=== PATIENT | male | born 1960 | race Caucasian/White ===

== ENCOUNTER → 2018-07-15 | Day surgery (SDC) | payer OTHER ==
[2018-07-11 18:00] LABS: ANION GAP 15.9 mmol/L (8-16); CALCIUM 9.7 mg/dL (8.4-10.2); CREATININE, SERUM 1.36 mg/dL (0.72-1.25); POTASSIUM 3.9 mmol/L (3.5-5.1)
[~2018-07-15] MED LIST: CLINDAMYCIN 300MG 50 ML IV ONE; FENTANYL CITRATE/PF 100MCG/2 ML INJ ONE; GENTAMICIN 120MG/NS 100ML 100 ML ONE; HYDROCHLOROTHIA25 MG PO; LIDOCAINE HCL 2% LOCAL INJ 5 ML SDV VIAL INJ ONE; LISINOPRIL10 MG PO; MIDAZOLAM HCL 2 MG/2 ML VIAL ONE; MULTI-VITAMIN1 EACH PO; OMEGA-31000 MG PO; PROPOFOL IV EMULSION 10 MG/ML 20 ML VIAL ONE; VITAMIN E400 UNIT PO
[2018-07-15 08:35] VITALS: BP 123/73
--- NOTE | 2018-07-15 13:02 | Operative Report ---
DATE OF PROCEDURE: July 15, 2018 PREOPERATIVE DIAGNOSIS: Elevated prostatic specific antigen of 11. POSTOPERATIVE DIAGNOSIS: Elevated prostatic specific antigen of 11. PROCEDURES 1. Prostate ultrasound. 2. Ultrasound-guidance needle biopsy. 3. Needle biopsy of prostate. ANESTHESIA: General. ESTIMATED BLOOD LOSS: Minimal. COMPLICATIONS: None. INDICATIONS FOR PROCEDURE: Mr. Jasmine is a 57-year-old male with recurrent elevated PSA. He and I had a long discussion of the alternatives, risks and benefits, including doing nothing, prostate biopsy. He voiced understanding of the options, alternatives, risks, and benefits, and elected to proceed. PROCEDURE IN DETAIL: After informed consent was obtained, the patient underwent his enema and received prophylactic antibiotics per guidelines. He was taken to the operative suite and placed supine on the operative table. Underwent anesthesia by the service. He was then placed in the left lateral decubitus position, and prepped and draped in a standard fashion for prostate biopsy. 1. PROSTATE ULTRASOUND: A transrectal ultrasound was inserted atraumatically anally with a plethora of lubrication. A prostate ultrasound was performed that revealed a normal appearing seminal vesicle, some scattered calcifications throughout the base and mid-regions of the prostate. The volume was calculated at 59.95 mL. IMPRESSION 1. Scattered prostate calcifications. 2. Volume 59.95 mL. 2. ULTRASOUND GUIDANCE: I was present and I utilized the ultrasound probe to guide the biopsies to the behavioral health technician. 3. NEEDLE BIOPSY OF PROSTATE: A 10-core biopsy approach was performed of the right and left base, lateral and mid-cores of the right and left apex and mid-regions. They were sent in 6 bottles in a standard section and fashion. Job#: [id number]
== END | disposition home or self-care (01) ==
LOC: OR 05:44
PROVIDERS: ATTEND Urology
DX: R97.20 Elevated prostate specific antigen [PSA] (principal); N42.89 Other specified disorders of prostate; N41.1 Chronic prostatitis; I10 Essential (primary) hypertension; E78.5 Hyperlipidemia, unspecified; Z01.812 Encounter for preprocedural laboratory examination; Z87.01 Personal history of pneumonia (recurrent); Z88.8 Allergy status to other drugs, medicaments and biological substances
CPT/HCPCS: 36415; 55700; 76872; 80048; 88305; J1580; J2001; J2250; J2704; 76998